=== PATIENT | male | born 1985 | race Caucasian/White ===

== ENCOUNTER 2017-08-31 19:01 | Emergency (ER) | payer MEDICAID ==
[2017-08-31 19:09] VITALS: BP 137/86
== END 2017-08-31 21:45 | disposition short-term general hospital (02) ==
LOC: ED 19:01
DX: R30.0 Dysuria (principal); R03.0 Elevated blood-pressure reading, without diagnosis of hypertension; R10.30 Lower abdominal pain, unspecified
CPT/HCPCS: 87491; 87591; J0696